=== PATIENT | female | born 1940 | race Caucasian/White ===

== ENCOUNTER 2018-10-30 08:42 | Outpatient (CLI) | payer OTHER | END 2018-10-30 08:46 | disposition home or self-care (01) | LOC: SONOGRAMA 08:42 | DX: D21.4 Benign neoplasm of connective and other soft tissue of abdomen (principal) ==

== ENCOUNTER 2018-11-25 07:31 | Outpatient (CLI) | payer OTHER | END 2018-11-25 07:36 | disposition home or self-care (01) | LOC: SONOGRAMA 07:31 | DX: D21.4 Benign neoplasm of connective and other soft tissue of abdomen (principal) ==

== ENCOUNTER 2018-12-24 05:35 | Day surgery (SDC) | payer OTHER ==
[~2018-12-24 05:35] MED LIST: LOSARTAN-HCTZ1 EACH PO; METFORMIN HCL500 M3 PO; TOPROL XL50 M1 PO; ZOCOR20 MG PO; [UNRECOGNIZED DRUG - OTHER] PO
== END 2018-12-24 13:25 | disposition home or self-care (01) ==
LOC: CIR.AMB 05:35
DX: D17.1 Benign lipomatous neoplasm of skin and subcutaneous tissue of trunk (principal)